=== PATIENT | female | born 1940 | race Caucasian/White ===

== ENCOUNTER 2020-03-10 16:57 | Emergency (ER) | payer MEDICARE, OTHER ==
[~2020-03-10] VITALS: Ht 167.6 cm; Wt 64.0 kg
[2020-03-10 19:24] LABS: BASOPHILS % 0.4 % (0.0-2.0); EOSINOPHILS % 0.1 % (0.0-5.0); HEMATOCRIT. 38.5 % (36.0-48.0); HEMOGLOBIN. 12.9 g/dL (12.0-16.0); LYMPHOCYTES % 10.9 % (20.0-50.0); MEAN CORPUSCULAR HEMOGLOBIN 31.1 pg (28.0-32.0); MEAN CORPUSCULAR VOLUME 92.8 fL (81.0-99.0); MEAN PLATELET VOLUME 8.4 fl (7.4-10.4); MONOCYTES % 12.2 % (2.0-8.0); NEUTROPHILS % 76.4 % (40.0-76.0); PLATELET 211 x1000/uL (130-400); RED BLOOD CELL COUNT 4.15 mill/uL (4.2-5.4); RED CELL DISTRIBUTION WIDTH 12.9 % (11.6-14.6)
[2020-03-10 19:30] LABS: CHLORIDE 104 mEq/L (98-107)
[2020-03-10] MEDS ORDERED: IOHEXOL-350 100 ML BOTTLE ONE ×2 (20:33→23:14)
[2020-03-10] MEDS ORDERED: SODIUM CHLORIDE 0.9% 500 ML IV ONE (22:15)
[2020-03-10] MEDS ORDERED: LORAZEPAM 2MG/ML CPJ IV ONE (23:30)
[2020-03-11 00:32] VITALS: BP 154/98
== END 2020-03-11 01:25 | disposition short-term general hospital (02) ==
LOC: ER 16:57
DX: R53.1 Weakness (principal); R00.0 Tachycardia, unspecified; R06.02 Shortness of breath; E78.00 Pure hypercholesterolemia, unspecified; F17.200 Nicotine dependence, unspecified, uncomplicated; R09.02 Hypoxemia; R51.9 Headache, unspecified
CPT/HCPCS: 36415; 70450; 71045; 71275; 80053; 83605; 83880; 84484; 85025; 93005; 96361; 96374; 99285; J2060; J7040; Q9967

== ENCOUNTER 2020-07-09 14:20 | Emergency (ER) | payer OTHER ==
[~2020-07-09] VITALS: Ht 165.1 cm; Wt 68.0 kg
[2020-07-09] MEDS ORDERED: TETANUS AND DIPHTHERIA TOX/PF 0.5ML SYR (ADULT) IM ONE (15:15)
[2020-07-09] MEDS ORDERED: LIDOCAINE HCL 1% 20ML VIAL (Pyxis) INJ INFIL ONE (15:15)
[2020-07-09] MEDS ORDERED: TETANUS, DIPHTHERIA, PERTUSSIS VAC/PF 0.5ML (>7YR OLD) IM ONE (15:30)
[2020-07-09 16:26] VITALS: BP 134/80
== END 2020-07-09 16:27 | disposition home or self-care (01) ==
LOC: ER 14:20
DX: S51.812A Laceration without foreign body of left forearm, initial encounter (principal); S50.852A Superficial foreign body of left forearm, initial encounter; W45.8XXA Other foreign body or object entering through skin, initial encounter; Y93.9 Activity, unspecified; Y92.9 Unspecified place or not applicable; E78.00 Pure hypercholesterolemia, unspecified
CPT/HCPCS: 12001; 90471; 90715; 99284; J3490; Z7610; 90714

== ENCOUNTER 2023-01-28 07:54 | Emergency (ER) | payer OTHER ==
[~2023-01-28] VITALS: Ht 162.6 cm; Wt 59.0 kg
[2023-01-28 07:59] VITALS: O2SAT 96
[2023-01-28] MEDS ORDERED: LIDOCAINE HCL 1% 20ML VIAL (Pyxis) INJ INFIL STA (08:46)
[2023-01-28] MEDS ORDERED: KETOROLAC 60MG/2ML VIAL IM ONE (09:00)
[2023-01-28] MEDS ORDERED: HYDROCODONE/ACETAMINOPHEN 10/325MG TABLET PO ONE (09:00)
[2023-01-28 09:38] LABS: BASOPHILS % 0.4 % (0.0-2.0); HEMATOCRIT. 34.6 % (36.0-48.0); HEMOGLOBIN. 11.7 g/dL (12.0-16.0); MEAN CORPUSCULAR HEMOGLOBIN 29.7 pg (28.0-32.0); MEAN CORPUSCULAR HGB CONC 33.8 g/dL (31.0-37.0); MEAN CORPUSCULAR VOLUME 87.8 fL (81.0-99.0); MEAN PLATELET VOLUME 8.5 fl (7.4-10.4); MONOCYTES % 12.1 % (2.0-8.0); NEUTROPHILS % 78.5 % (40.0-76.0); PLATELET 291 x1000/uL (130-400); RED BLOOD CELL COUNT 3.94 mill/uL (4.2-5.4); RED CELL DISTRIBUTION WIDTH 13.9 % (11.6-14.6); WHITE BLOOD COUNT 8.5 x1000/uL (4.5-11.0)
[2023-01-28 09:50] LABS: CHLORIDE 102 mEq/L (98-107); INDEX HEMOLYSI 1 (1-3); INDEX ICTERIC 1 (1-4); INDEX LIPEMIC 1 (1-3); SODIUM 139 mEq/L (136-145)
[2023-01-28 10:03] LABS: ALANINE AMINOTRANSFERASE 21 IU/L (13-61); ALBUMIN 2.4 g/dL (3.4-5.0); ASPARTATE AMINOTRANSFERASE 27 IU/L (15-37); BILIRUBIN TOTAL 0.7 mg/dL (0.1-1.0); CALCIUM 8.8 mg/dL (8.5-10.1); CARBON DIOXIDE 28 mEq/L (21-32); CREATININE 0.6 mg/dL (0.6-1.3); GLUCOSE 149 mg/dL (70-105); POTASSIUM 2.5 mEq/L (3.5-5.1); PROTEIN TOTAL 6.9 g/dL (6.0-8.3); UREA NITROGEN BLOOD 12 mg/dL (7-21); URIC ACID 2.6 mg/dL (2.6-7.2)
[2023-01-28 10:28] LABS: ERYTHROCYTE SEDIMENTATION RATE 102 mm/hr (0-42)
[2023-01-28] MEDS ORDERED: POTASSIUM CHLORIDE 20MEQ TABLET SR PO NR (12:00)
[2023-01-28] MEDS ORDERED: CEFTRIAXONE 1GM PREMIX 50 ML IV NR (12:15)
[2023-01-28] MEDS ORDERED: VANCOMYCIN 1G PREMIX 200 ML IV SCH (12:15)
[2023-01-28] MEDS ORDERED: POTASSIUM CHLORIDE INJ 40 MEQ in DEXT 5% WATER 250 ML IV NR (13:00)
[2023-01-28] MEDS ORDERED: KETOROLAC 60MG/2ML VIAL IM NR (14:30)
[2023-01-28] MEDS ORDERED: HYDROCODONE/ACETAMINOPHEN 10/325MG TABLET PO NR (14:30)
[2023-01-28 14:40] VITALS: BP 110/67; PULSE 83; RESP 16; TEMP 98.1
== END 2023-01-28 15:52 | disposition short-term general hospital (02) ==
LOC: ER 08:50
DX: M25.562 Pain in left knee (principal); E87.6 Hypokalemia; M17.12 Unilateral primary osteoarthritis, left knee; E78.00 Pure hypercholesterolemia, unspecified
CPT/HCPCS: 99284; 96365; 80053; 84550; 85025; 85651; 36415; 73562; 96368; J0696; J3480; J7060